=== PATIENT | male | born 1965 | race Caucasian/White ===

== ENCOUNTER 2017-02-15 05:21 | Day surgery (SDC) ==
[2017-02-15] MEDS ORDERED: PEPCID ONE ×3 (06:02→06:03)
[2017-02-15] MEDS ORDERED: REGLAN ONE (06:03)
[2017-02-15] MEDS ORDERED: LR 1,000 ML ONE (06:03)
[2017-02-15] MEDS ORDERED: KEFZOL 2 GM/D5W 50 ML ONE (06:04)
[2017-02-15] MEDS ORDERED: MARCAINE 0.25% PF/EPI 1:200,000 ONE (06:16)
[2017-02-15] MEDS ORDERED: XYLOCAINE 1% ONE (06:16)
[2017-02-15] MEDS ORDERED: HEPARIN ONE (06:16)
[2017-02-15] MEDS ORDERED: NS 500 ML ONE (06:17)
[2017-02-15] MEDS ORDERED: DIPRIVAN 1% ONE ×2 (06:24→07:31)
[2017-02-15] MEDS ORDERED: FENTANYL ONE (07:31)
[2017-02-15] MEDS ORDERED: VERSED ONE (07:32)
[2017-02-15] MEDS ORDERED: NORCO-5 ONE (07:59)
[2017-02-15] MEDS ORDERED: XYLOCAINE-MPF 2% ONE (08:04)
--- NOTE | 2017-02-15 08:12 | Diag Imaging Result Document ---
PROCEDURE NAME: CHEST-PORTABLE - 02/15/2017 SINGLE FRONTAL RADIOGRAPH OF THE CHEST: COMPARISON: None available. FINDINGS: There is a newly placed right chest port. The tip projects over the lower SVC just superior to the atriocaval junction in the expected position. There is no evidence of pneumothorax post placement. The lungs are clear otherwise. There is no definite pleural fluid collection. Cardiac silhouette and central vasculature are grossly unremarkable. IMPRESSION: No evidence of pneumothorax status post right chest port placement and otherwise unremarkable.
[2017-02-15 08:26] VITALS: BP 132/89
--- NOTE | 2017-02-15 09:18 | OPERATIVE NOTE ---
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 PROCEDURE: Ultrasound with fluoroscopically-guided right internal jugular vein Port-A-Cath placement. SURGEON: Tavares Martino MD. WASH TANK TENDER: None. ANESTHESIA: MAC with local. INTRAOPERATIVE FINDINGS: Ultrasound showed a good caliber right internal jugular vein. Fluoroscopically showed the catheter in good position without kinks, no obvious pneumothorax. COMPLICATIONS: None at the time of dictation. ESTIMATED BLOOD LOSS: 5 mL. BRIEF HISTORY: The patient is a 51-year-old male who came in with a neck mass on the left side. 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 He was seen by Oncology, had an ultrasound done that showed liver lesions concerning for metastatic disease. Given this, we elected to place a port. The risks, benefits, and alternatives were discussed. All questions were answered. DESCRIPTION OF PROCEDURE: After informed consent was obtained, the patient was brought to the operating theater, transferred to the operating table, placed in the supine position. MAC anesthesia was then performed without complication. A formal time-out was then performed, confirming patient, date, procedure. All were in agreement. At that time, attention was given to the right neck. The right neck was prepped and draped in a sterile fashion. After the formal time-out, I used ultrasound to identify the right internal jugular vein. I used local anesthetic to anesthetize the skin. I was able to cannulate the right internal jugular vein with the needle under ultrasound guidance and pass a wire to the superior vena cava, confirmed on fluoro imaging. We then created a tunneled over a port from the right chest wall to the right neck, exchanged it over wire, and placed the catheter in the superior vena cava, secured the port in place. We were able to aspirate blood easily. We closed the skin in a standard fashion. The patient tolerated the procedure well, was transferred to the recovery room in stable condition. A postoperative chest x-ray is pending, but there was no obvious pneumothorax on the fluoro images.
== END 2017-02-15 08:26 | disposition home or self-care (01) ==
LOC: OR 05:21
PROVIDERS: ATTEND Surgery
DX: C76.0 Malignant neoplasm of head, face and neck (principal); K76.9 Liver disease, unspecified; R59.0 Localized enlarged lymph nodes; F17.210 Nicotine dependence, cigarettes, uncomplicated; M81.0 Age-related osteoporosis without current pathological fracture; F10.21 Alcohol dependence, in remission; Z79.891 Long term (current) use of opiate analgesic
CPT/HCPCS: 71010; 76000; J0690; J2250; J3010; J7040; J7120; S0020